=== PATIENT | male | born 1965 | race Caucasian/White ===

== ENCOUNTER 2019-03-22 11:19 | Day surgery (SDC) | payer BC ==
[2019-03-20 09:42] VITALS: BMI 29.6
[~2019-03-22 11:19] MED LIST: LACTATED RINGERS 1,000 ML IV SCH; LIDOCAINE 1% 20 ML VIAL (10MG/ML) FOR IV START INTRADERMA PRN
[2019-03-22 11:43] VITALS: TEMP 97
[2019-03-22] MEDS ORDERED: LIDOCAINE 1% INJ 10MG/ML (20 ML MDV) ONE (12:57)
[2019-03-22] MEDS ORDERED: fentaNYL (PF) 50 MCG/ML 2 ML AMP ONE (12:57)
[2019-03-22] MEDS ORDERED: MIDAZOLAM 2 MG/2 ML VIAL ONE (12:57)
[2019-03-22] MEDS ORDERED: PROPOFOL 10 MG/ML 20 ML VIAL IV ONE (12:57)
[2019-03-22] MEDS ORDERED: ePHEDrine SULFATE/0.9% NACL/PF 50 MG/5 ML SYRINGE IV ONE (12:57)
--- NOTE | 2019-03-22 13:39 | P.PCN ---
Date of Procedure: 03/22/19 Description of Procedure: BRIEF HISTORY: Patient is a 53-year-old pleasant male scheduled for an elective colonoscopy as a part of screening for malignant neoplasm of the colon. No prior colonoscopies reported. No abdominal pain, change in bowel habits or blood per rectum reported. No family history of colon cancer. PROCEDURE PERFORMED: Colonoscopy. PREOPERATIVE DIAGNOSIS: Screening for malignant neoplasm of the colon, no prior colonoscopies reported. ESTIMATED BLOOD LOSS: Minimal. IV sedation per Anesthesia. PROCEDURE: After informed consent was obtained, the patient, was brought into the endoscopy unit. IV sedation was administered by Anesthesia under continuous monitoring. Digital rectal examination was normal. Initially the Olympus CF-190 flexible video colonoscope was then inserted in the rectum, gradually advanced into the cecum without any difficulty. Careful examination was performed as the scope was gradually being withdrawn. Ileocecal valve and the appendiceal orifice were visualized and appeared normal. Prep was excellent. Mucosa of the cecum, ascending colon, transverse colon, descending colon, sigmoid colon, and rectum appeared normal. Retroflexion was performed in the rectum and no lesions were seen, mild internal hemorrhoids. The patient tolerated the procedure well. IMPRESSION: Normal-appearing colon from rectum to cecum. Mild internal hemorrhoids. RECOMMENDATIONS: Findings of this examination were discussed with the patient and his . Okay to resume diet. Okay to resume medications. Repeat colonoscopy in 10 years, or sooner if signs or symptoms develop which warrant endoscopic evaluation.
[2019-03-22 14:06] VITALS: BP 108/72; PULSE 71; RESP 18
== END 2019-03-22 14:04 | disposition home or self-care (01) ==
LOC: ORWHC2ENDO 11:19
PROVIDERS: ATTEND Internal Medicine
DX: Z12.11 Encounter for screening for malignant neoplasm of colon (principal); K64.8 Other hemorrhoids; Z88.3 Allergy status to other anti-infective agents; Z88.0 Allergy status to penicillin; I10 Essential (primary) hypertension; E78.5 Hyperlipidemia, unspecified; Z87.891 Personal history of nicotine dependence; K21.9 Gastro-esophageal reflux disease without esophagitis; Z86.73 Personal history of transient ischemic attack (TIA), and cerebral infarction without residual deficits; Z79.82 Long term (current) use of aspirin; Z79.899 Other long term (current) drug therapy
CPT/HCPCS: J2250; J2001; J3010; J2704; G0121

== ENCOUNTER 2022-03-26 13:28 | Emergency (ER) | payer OTHER, BC ==
[2022-03-26 13:32] VITALS: TEMP 98.1
[2022-03-26] MEDS ORDERED: FAMOTIDINE 20 MG/2 ML VIAL IV STA (13:54)
[2022-03-26] MEDS ORDERED: diphenhydrAMINE 50 MG/ML 1 ML VIAL IVP STA (13:54)
[2022-03-26] MEDS ORDERED: MORPHINE SULFATE 2 MG/ML SYRINGE IVP STA (13:54)
[2022-03-26] MEDS ORDERED: methylPREDNISolone SOD SUCCI 125 MG/2 ML VIAL IV STA (13:54)
[2022-03-26 14:20] LABS: Basophils % (A) 1 %; Eosinophils # (A) 0.1 k/uL (0-0.7); Eosinophils % (A) 2 %; HCT 47.2 % (39.0-53.0); HGB 16.4 gm/dL (13.0-17.5); Lymphocytes # (A) 2.5 k/uL (1.0-4.8); Lymphocytes % (A) 34 %; MCH 30.1 pg (25.0-35.0); MCHC 34.7 g/dL (31.0-37.0); MCV 86.8 fL (80.0-100.0); Mean Platelet Volume 7.6; Monocytes # (A) 0.5 k/uL (0-1.0); Monocytes % (A) 6 %; Neutrophils % (A) 55 %; Platelet Count 259 k/uL (150-450); RBC 5.44 m/uL (4.30-5.90); WBC 7.2 k/uL (3.8-10.6)
[2022-03-26 14:32] LABS: Albumin 4.9 g/dL (3.5-5.0); Calcium 9.2 mg/dL (8.4-10.2); Magnesium 1.9 mg/dL (1.6-2.3); Potassium 4.4 mmol/L (3.5-5.1); Total Bilirubin 0.8 mg/dL (0.2-1.3); Total Protein 7.7 g/dL (6.3-8.2)
--- NOTE | 2022-03-26 15:01 | CT ---
EXAMINATION TYPE: CT thor lumbar spine wo con CT DLP: 1395.2 mGycm, Automated exposure control for dose reduction was used. DATE OF EXAM: 03/26/2022 2:45 PM COMPARISON: None. CLINICAL INDICATION:Male, 56 years old with history of left flank pain, lumbar/lower thoracic spine p ain TECHNIQUE: Axial images of the thoracic spine were obtained without contrast. Coronal and sagittal re formats were performed. FINDINGS: There is mild multilevel disc degeneration changes throughout the spine. Minimal facet join t arthropathy seen throughout the lower lumbar spine. The vertebral bodies have maintained height and there is no evidence of acute or subacute fracture. No significant spinal canal stenosis seen throug hout the thoracic or lumbar spine. Mild centrilobular emphysema changes are seen within the lungs. Streaky atelectasis/scarring is seen in the lung bases. Mild atherosclerosis of the arterial vasculature. Right renal cyst partially visua lized. IMPRESSION: 1. No spinal canal or neural foraminal stenosis is identified. 2. Mild multilevel disc degeneration changes. 3. No evidence for acute/subacute/chronic fracture.
--- NOTE | 2022-03-26 15:02 | CT ---
EXAMINATION TYPE: CT abdomen pelvis w con CT DLP: 1083.7 mGycm, Automated exposure control for dose reduction was used. DATE OF EXAM: 03/26/2022 2:46 PM COMPARISON: None CLINICAL INDICATION:Male, 56 years old with history of left flank pain, lumbar/lower thoracic spine p ain; Lt flank pain, fall one month ago TECHNIQUE: Axial CT of the abdomen and pelvis. Sagittal and coronal reformats were created on a [employer] workstation. Contrast used:100 mL of Isovue 300 with IV Contrast, Oral contrast used: without Oral Contrast FINDINGS: LOWER CHEST: Unremarkable ABDOMEN LIVER: Diffusely hypoattenuating parenchyma. GALLBLADDER AND BILE DUCTS: Unremarkable. PANCREAS: Unremarkable. SPLEEN: Small splenule is present. ADRENAL GLANDS: Unremarkable. KIDNEYS AND URETERS: No evidence of hydronephrosis or renal calculus. Right renal cyst. PELVIS BLADDER: Unremarkable REPRODUCTIVE: Coarse calcifications of the prostate gland are identified. ABDOMEN & PELVIS STOMACH AND BOWEL: No evidence of bowel obstruction. PERITONEUM: No evidence of pneumoperitoneum or free fluid. VASCULATURE: No evidence of aortic aneurysm. MUSCULOSKELETAL: No acute osseous abnormalities. Mild disc degeneration changes are present throughou t the thoracolumbar spine. LYMPH NODES: No gross evidence for lymphadenopathy. SOFT TISSUE/ABDOMINAL WALL: Bilateral, right greater than left fat filled inguinal hernia. IMPRESSION: 1. No acute intra-abdominal process. 2. Hepatic steatosis. 3. Right fat filled inguinal hernia.
[2022-03-26] MEDS ORDERED: ACET/COD 300 MG/30 MG STARTER PACK 6 TAB BTL PO STA (15:58)
--- NOTE | 2022-03-26 16:00 | ED ---
General Adult HPI - General Chief complaint: Back Pain/Injury Stated complaint: [facility] Back Pain/Injury Time Seen by Provider: 03/26/22 13:35 Source: patient, RN notes reviewed, old records reviewed Mode of arrival: ambulatory Limitations: no limitations - History of Present Illness Initial comments: Patient is a 56-year-old male who presents emergency Department complaining of back pain. Was sent from outpatient health over concern for continued back pain from a fall 1 week ago. States he fell on some equipment. He has been experiencing left sided back pain since then. States it radiates somewhat around from his spine physical of his abdomen. Denies any urinary symptoms, constipation, diarrhea. Denies nausea or vomiting. His no other acute complaints at this time. Denies saddle anesthesias. Denies any difficulty with urination or bowel movements. Denies any lower extremity cancer numbness. Denies any saddle anesthesias. Denies any chest pain, shortness of breath. Has no other acute complaints at this time. Since the emergency department for further evaluation from occupational health. - Related Data Home Medications Medication Instructions Recorded Confirmed Aspirin [Adult Low Dose Aspirin EC] 81 mg PO DAILY 03/20/19 03/22/19 Atorvastatin [Lipitor] 10 mg PO DAILY 03/20/19 03/22/19 Cholecalciferol (Vitamin D3) 2,000 unit PO DAILY 03/20/19 03/22/19 [Vitamin D3] Lucentis(Dose Unknown) 1 injection RIGHT EYE QMONTH 03/20/19 03/22/19 Omeprazole 20 mg PO DAILY 03/20/19 03/22/19 lisinopriL [Prinivil] 10 mg PO DAILY 03/20/19 03/22/19 Previous Rx's Medication Instructions Recorded Lidocaine 5% Patch [Lidoderm 5% 1 patch TOPICAL DAILY PRN 7 Days 03/26/22 Patch] #7 patch methocarbamoL [Robaxin-750] 750 mg PO TID PRN 7 Days #21 tab 03/26/22 Allergies Allergy/AdvReac Type Severity Reaction Status Date / Time iodine Allergy Severe Unknown Verified 03/26/22 13:32 Penicillins Allergy Unknown Verified 03/26/22 13:32 Childhood Review of Systems ROS Statement: Those systems with pertinent positive or pertinent negative responses have been documented in the HPI. Review of Systems: CONST: Denies fever EYES: Denies blurry vision ENT: Denies nasal congestion C/V: Denies Chest pain RESP: Denies shortness of breath GI: Denies abdominal pain : Denies dysuria SKIN: Denies rash. MSK: Endorse's back pain NEURO: Denies headache ROS Other: All systems not noted in ROS Statement are negative. Past Medical History Past Medical History: GERD/Reflux, Hyperlipidemia, Hypertension History of Any Multi-Drug Resistant Organisms: None Reported Past Surgical History: Hernia Repair Past Anesthesia/Blood Transfusion Reactions: No Reported Reaction Past Psychological History: No Psychological Hx Reported Smoking Status: Former smoker Past Alcohol Use History: Rare Past Drug Use History: None Reported - Past Family History Mother Family Medical History: Cancer General Exam - General Exam Comments Initial Comments: General: Appears in mild distress secondary to back pain. HEAD: Normal with no signs of head trauma. EYES: PERRLA, EOMI, conjunctiva normal, no discharge. ENT: Hearing grossly intact, normal oropharynx. RESPIRATORY: Clear breath sounds bilaterally. No wheezes, rales, or rhonchi. C/V: Regular rate and rhythm. S1 and S2 auscultated, no edema, peripheral pulses 2+ and intact throughout ABD: Abdomen is soft, nondistended. Nontender to palpation over the anterior abdomen. Does have some left-sided flank tenderness that radiates straight to the spine and pelvic distribution. Appears to be radiculopathy. No guarding. No CVA tenderness to percussion. No rebound tenderness. No peritoneal signs. EXT: Normal range of motion, no obvious deformity. No midline cervical spine tenderness to palpation. Does have some mild midline lower thoracic, upper lumbar spine tenderness to palpation. Pelvis is stable. SKIN: No rashes or lesions observed on exposed skin. NEURO: Alert and oriented 4. No focal sensory strength deficits. Able to ambulate without difficulty. Limitations: no limitations Course Vital Signs 03/26/22 03/26/22 13:29 16:23 Temperature 98.1 F Pulse Rate 73 71 Respiratory 20 18 Rate Blood Pressure 123/83 124/86 O2 Sat by Pulse 98 96 Oximetry Medical Decision Making - Medical Decision Making Based on patient's presentation and physical exam, I do believe he is experiencing musculoskeletal cause for his back and side pain. Cannot rule out intra-abdominal cause. We'll symptomatically treat patient for his pain, as well as obtain basic laboratory studies for the Abdomen and CT Abd and pelvis with lumbar spine and thoracic spine. He was in agreement this plan. Laboratory studies were within normal limits. Abdomen and pelvis CT showed no acute process. There is hepatic steatosis as well as a bright fat filled inguinal hernia. CT spine reveals mild multilevel disc degeneration. No spinal canal or neural foraminal stenosis. No evidence of acute or chronic fracture. I discussed the findings with the patient as well as his are in the room. He is uncertain what is causing the current symptoms. Could be still experiencing bruising from the fall. Recommended follow-up with his PCP and we'll provide him with analgesic medications for home. He was in agreement this plan. He has no red flag symptoms for cauda equina syndrome. Vital signs within normal limits. Patient was in agreement this plan for discharge with follow-up. I will provide the patient with a prescription for lidocaine patch, Robaxin. I instructed the patient to follow up with their PCP in the next 1-3 days . I explained that the patient should return to the emergency department if they experience any worsening symptoms. Strict return precautions were discussed with the patient. The patient expressed understanding of these instructions. I answered all questions that the patient had. The patient was discharged home in good condition with their prescriptions and follow up information. - Lab Data Result diagrams: 03/26/22 14:07 03/26/22 14:07 Lab Results 03/26/22 03/26/22 Range/Units 14:07 14:07 WBC 7.2 (3.8-10.6) k/uL RBC 5.44 (4.30-5.90) m/uL Hgb 16.4 (13.0-17.5) gm/dL Hct 47.2 (39.0-53.0) % MCV 86.8 (80.0-100.0) fL MCH 30.1 (25.0-35.0) pg MCHC 34.7 (31.0-37.0) g/dL RDW 12.0 (11.5-15.5) % Plt Count 259 (150-450) k/uL MPV 7.6 Neutrophils % 55 % Lymphocytes % 34 % Monocytes % 6 % Eosinophils % 2 % Basophils % 1 % Neutrophils # 4.0 (1.3-7.7) k/uL Lymphocytes # 2.5 (1.0-4.8) k/uL Monocytes # 0.5 (0-1.0) k/uL Eosinophils # 0.1 (0-0.7) k/uL Basophils # 0.0 (0-0.2) k/uL Sodium 137 (137-145) mmol/L Potassium 4.4 (3.5-5.1) mmol/L Chloride 107 (98-107) mmol/L Carbon Dioxide 20 L (22-30) mmol/L Anion Gap 10 mmol/L BUN 17 (9-20) mg/dL Creatinine 1.12 (0.66-1.25) mg/dL Est GFR (CKD-EPI)AfAm 85 (>60 ml/min/1.73 sqM) Est GFR (CKD-EPI)NonAf 74 (>60 ml/min/1.73 sqM) Glucose 98 (74-99) mg/dL Calcium 9.2 (8.4-10.2) mg/dL Magnesium 1.9 (1.6-2.3) mg/dL Total Bilirubin 0.8 (0.2-1.3) mg/dL AST 32 (17-59) U/L ALT 32 (4-49) U/L Alkaline Phosphatase 96 (38-126) U/L Total Protein 7.7 (6.3-8.2) g/dL Albumin 4.9 (3.5-5.0) g/dL Lipase 109 (23-300) U/L Disposition Clinical Impression: Back pain due to injury Disposition: HOME SELF-CARE Condition: Fair Instructions (If sedation given, give patient instructions): Acute Low Back Pain (ED) Prescriptions: Lidocaine 5% Patch [Lidoderm 5% Patch] 1 patch TOPICAL DAILY PRN 7 Days #7 patch PRN Reason: Pain methocarbamoL [Robaxin-750] 750 mg PO TID PRN 7 Days #21 tab PRN Reason: Pain Is patient prescribed a controlled substance at d/c from ED?: No Referrals: Rachele Ford MD [Primary Care Provider] - 1-2 days Time of Disposition: 15:45
[2022-03-26 16:23] VITALS: BP 124/86; PULSE 71; RESP 18
== END 2022-03-26 16:23 | disposition home or self-care (01) ==
LOC: EC 13:28
DX: S39.92XA Unspecified injury of lower back, initial encounter (principal); Z87.891 Personal history of nicotine dependence; Z88.0 Allergy status to penicillin; Z91.041 Radiographic dye allergy status; W19.XXXA Unspecified fall, initial encounter
CPT/HCPCS: 36415; 80053; 83690; 83735; 85025; 72128; 72131; 74177; 99284; 96374; 96375; J1200; J2930; Q9967

== ENCOUNTER → 2024-04-02 | Outpatient (CLI) | payer BC ==
--- NOTE | 2024-04-28 19:07 | US ---
Site ID [facility] Patient Malik Parson ID [id number] 1965 Age/Gender: 58Y, M Order # N/A Procedure US Prostate Transrectal Date 04/02/2024 4:04:00 PM EXAMINATION TYPE: US prostate transrectal DATE OF EXAM: 04/15/2024 COMPARISON: Ultrasound prostate 06/14/2023, CT abdomen and pelvis 03/26/2022 CLINICAL INDICATION: Male, 58 year old with history of elevated PSA. This examination was performed using the transrectal probe. EXAM MEASUREMENTS: Gland Size: 4.66 x 3.09 x 4.55 cm Volume: 34.30 mL Predicted PSA: 4.1 Actual PSA (if available): Not available due to computer is down. The seminal vesicles appear normal size and grossly unremarkable. Mildly enlarged prostate gland with slightly heterogenous appearance. No worrisome peripheral prosthetic hypoechoic nodule seen. Central zone calcifications redemonstrated. IMPRESSION: 1. No worrisome peripheral prosthetic hypoechoic nodule seen. 2. Mild prostatomegaly.
== END | disposition home or self-care (01) ==
LOC: RADUSWWP 12:00
PROVIDERS: ATTEND Internal Medicine
DX: R97.20 Elevated prostate specific antigen [PSA]
CPT/HCPCS: 76872

== ENCOUNTER → 2024-12-03 | Outpatient (CLI) | payer BC ==
--- NOTE | 2024-12-03 07:11 | MR ---
EXAMINATION TYPE: MR Prostate wo/w con DATE OF EXAM: 12/03/2024 COMPARISON: Ultrasound prostate April 02, 2024 INDICATION: Elevated PSA. PSA: 14.5 ng/ml on November 02 2024 Recent Biopsy and Date: None Pathology Report (If Applicable): n/a TECHNIQUE: Examination was performed using a 3T MRI without an endorectal coil. Multiparametric imaging was perf ormed with T2 mutliplanar sequences, axial diffusion weighted imaging and dynamic contrast enhanced i maging, utilizing 9 mL intravenous Gadobutrol gadolinium contrast. FINDINGS: PROSTATE VOLUME: 4.3 cm SI x 3.7 cm AP x 4.7 cm LR Vol= 39.2 cc PSA DENSITY: 0.37 ng/ml/cc Slightly enlarged prostate consistent with BPH is present. Site 1: Assessment Category:4 1.4 cm area of heterogeneous signal intensity with obscured margins left mid zone extending towards t he apex medially corresponding to area of marked hypointensity on ADC imaging and hyperintensity on d iffusion-weighted imaging in the transitional zone anterior aspect with focal enhancement. ADC series 802 images 60 and 68 Seminal vesicles are unremarkable. No destructive osseous lesions are seen. Urinary bladder shows mil d distention. IMPRESSION: Slightly enlarged prostate. Suspicious lesion in the left transitional zone is present. Advised imaging guided targeted biopsy to further evaluate. Highest Assessment Category: 4 MRI Stage: T0 N0 M0 based on review of pelvic images. False negative rates for MRI range from 5-20% depending on risk profile. Assessment Categories: 1 ? Very low (clinically significant cancer is highly unlikely to be present) 2 ? Low (clinically significant cancer is unlikely to be present) 3 ? Intermediate (the presence of clinically significant cancer is equivocal) 4 ? High (clinically significant cancer is likely to be present) 5 ? Very high (clinically significant cancer is highly likely to be present) [facility], , 12/03/2024 7:08 AM
== END | disposition home or self-care (01) ==
LOC: RADMRIMAIN 05:44
PROVIDERS: ATTEND Urology
DX: N40.0 Benign prostatic hyperplasia without lower urinary tract symptoms (principal); R97.20 Elevated prostate specific antigen [PSA]
CPT/HCPCS: 72197; A9585

== ENCOUNTER → 2025-02-07 | Outpatient (CLI) | payer BC ==
--- NOTE | 2025-02-10 23:09 | PE ---
EXAMINATION TYPE: PET CT fusion skull to thigh DATE OF EXAM: 02/07/2025 COMPARISON: 03/26/2022 Prior PET/CT: None at this location CLINICAL INDICATION: Male, 59 years old with history of C61 prostate ca, TECHNIQUE: Following the intravenous administration of 6.3 mCi of Gallium-68 labeled PSMA, whole bod y images are performed from the skull base to the midthigh. Images are reviewed on the computer in t he coronal, axial, and sagittal planes. Reconstructed rotating images are created on independent wor kstation and reviewed on the computer. A localization and attenuation correction CT is performed in conjunction with the PET scan. DLP: 890.4 mGycm SCAN: Initial FINDINGS: NECK: There is normal radiotracer distribution through salivary glands. No abnormal uptake THORAX: No abnormal uptake ABDOMEN:There is normal radiotracer excretion through the renal collecting system. Normal uptake wit hin the liver and spleen. No abnormal uptake PELVIS: In the left mid prostate there is some faint uptake present within SUV of 10.13 OSSEOUS STRUCTURES: No abnormal uptake LOCALIZATION CT: No suspicious changes COMPARISON: None IMPRESSION: 1. Mild focal uptake within the left portion of the prostate consistent with patient's known primary. 2. No suspicious changes to suggest metastatic disease. [facility], , 02/10/2025 11:07 PM
== END | disposition home or self-care (01) ==
LOC: RADPETMAIN 07:59
PROVIDERS: ATTEND Urology
DX: C61 Malignant neoplasm of prostate (principal)
CPT/HCPCS: 78815; A9596

== ENCOUNTER → 2025-02-19 | Outpatient (CLI) | payer BC ==
[2025-02-19 15:36] LABS: Anion Gap 10.30 mmol/L (4.00-12.00); BUN/Creat Ratio 12.82 Ratio (12.00-20.00); Blood Urea Nitrogen 14.1 mg/dL (9.0-27.0); Calcium 9.4 mg/dL (8.7-10.3); Carbon Dioxide 22.7 mmol/L (21.6-31.8); Chloride 104 mmol/L (96-109); Glucose 100 mg/dL (70-110); Potassium 4.5 mmol/L (3.5-5.5); Sodium 137 mmol/L (135-145)
[2025-02-19 16:02] LABS: HCT 50.5 % (39.6-50.0); HGB 17.4 g/dL (13.0-17.0); MCH 29.1 pg (27.0-32.0); MCHC 34.5 g/dL (32.0-37.0); MCV 84.4 FL (80.0-97.0); NRBC Per 100 WBC 0 X 10*3/uL (0.00-0.01); Platelet Count 235 X 10*3/uL (140-440); RBC 5.98 X 10*6/uL (4.40-5.60); RDW 12.1 % (11.5-14.5); WBC 7.02 X 10*3/uL (4.50-10.00)
== END | disposition home or self-care (01) ==
LOC: LABPAT 08:43
PROVIDERS: ATTEND Urology
DX: Z01.812 Encounter for preprocedural laboratory examination (principal); C61 Malignant neoplasm of prostate
CPT/HCPCS: 80048; 85027; 86850; 86900; 86901

== ENCOUNTER 2025-02-28 08:46 | Day surgery (SDC) | payer BC ==
--- NOTE | 2025-02-25 12:36 | P.HPIHPCON ---
History of Present Illness H&P Date: 02/25/25 Chief Complaint: Prostate cancer This is a 59-year-old male with history of [place] 7 prostate cancer, patient had a high-volume disease on biopsy. Underwent a PSMA PET scan that showed no evidence of metastatic disease. Option of robotic radical prostatectomy versus radiation therapy was discussed with him in detail. Risk and benefit of each approach were discussed. He agreed to proceed with a robotic radical prostatectomy. He is aware of the risk which include but not limited to bleeding, infection, erectile dysfunction, urinary incontinence, injury to nearby organs. Risk of cancer recurrence and the need for additional treatments was discussed. He understood all the risk and agreed to proceed Consent for Procedure: I have explained the operation/procedure to the patient, including the risks, benefits, side effects, alternative therapies (including not receiving the proposed treatment or service), the likelihood of the patient achieving his/her goals, and potential recuperation problems for the procedure/sedation/analgesia, as well as any blood products, if indicated. I also explained to the patient the risks, benefits and side effects of the alternatives, as well as the risks related to not receiving the proposed procedure, care, treatment, or services. Past Medical History Past Medical History: GERD/Reflux, Hyperlipidemia, Hypertension Additional Past Medical History / Comment(s): ELEVATED PSA History of Any Multi-Drug Resistant Organisms: None Reported Past Surgical History: Hernia Repair Additional Past Surgical History / Comment(s): BILAT INGUINAL HERNIA REPAIR. COLONOSCOPY Past Anesthesia/Blood Transfusion Reactions: No Reported Reaction Smoking Status: Former smoker - Past Family History Mother Family Medical History: Cancer Medications and Allergies Home Medications Medication Instructions Recorded Confirmed Type Aspirin [Adult Low Dose Aspirin EC] 81 mg PO DAILY 03/20/19 01/08/25 History Cholecalciferol (Vitamin D3) 2,000 unit PO DAILY 03/20/19 01/08/25 History [Vitamin D3] Omeprazole 20 mg PO DAILY 03/20/19 01/08/25 History lisinopriL [Prinivil] 10 mg PO DAILY 03/20/19 01/08/25 History Atorvastatin [Lipitor] 20 mg PO DAILY 01/03/25 01/08/25 History Multivit,Calc,Min/FA/K1/Lycop 1 each PO DAILY 01/03/25 01/08/25 History [One-A-Day Men's Complete Tab] Vitamin E (Dl,Tocopheryl Acet) 400 unit PO DAILY 01/03/25 01/08/25 History [Vitamin E (400 Iu = 180 mg)] Allergies Allergy/AdvReac Type Severity Reaction Status Date / Time iodine Allergy Severe Unknown Verified 01/08/25 13:19 Penicillins Allergy Unknown Verified 01/08/25 13:19 Childhood Surgical - Exam - General no distress, no pain - Eyes normal ocular movement, no pale - ENT normal nares, normal mucosa - Respiratory normal expansion, normal respiratory effort - Abdomen Abdomen: soft, non tender - Psychiatric oriented to time, oriented to person, oriented to place Assessment and Plan Assessment: OR for robotic radical prostatectomy with bilateral pelvic lymph node dissection
[~2025-02-28 08:46] MED LIST changes: +HYDROmorphone 0.5 MG/0.5 ML SYRINGE IVP PRN; -LACTATED RINGERS 1,000 ML IV SCH; +LIDOCAINE 1% (10MG/ML) FOR IV START INTRADERMA PRN; -LIDOCAINE 1% 20 ML VIAL (10MG/ML) FOR IV START INTRADERMA PRN
[2025-02-28] MEDS: IV FLUID CONTINUATION 1,000 ML IV ONE ×2 (09:28→09:41)
[2025-02-28] MEDS: LACTATED RINGERS 1,000 ML IV SCH (09:29)
[2025-02-28] MEDS: ONDANSETRON 4 MG/2 ML VIAL IVP ONE (09:39)
[2025-02-28] MEDS: DEXAMETHASONE SOD PHOSPHATE 4 MG/ML 1 ML VIAL IV ONE (09:40)
[2025-02-28] MEDS: MIDAZOLAM 2 MG/2 ML VIAL IV PRN (10:40)
[2025-02-28] MEDS: fentaNYL (PF) 50 MCG/ML 2 ML AMP IVP PRN (10:45)
--- NOTE | 2025-02-28 10:52 | P.ANPRN ---
Procedure Note - Anesthesia - Nerve Block Performed Bilateral Erector Spinae Single Time Out Performed: Yes Date of Procedure: 02/28/25 Procedure Start Time: 10:39 Procedure Stop Time: 10:44 Location of Patient: PreOp Indication: Acute Post-Operative Pain, Analgesia, Requested by Surgeon Sedation Type: Sedate with meaningful contact maintained Preparation: Sterile Prep Position: Prone Catheter: None Needle Types: Pajunk Needle Gauge: 21 Ultrasound used to visualize needle placement: Yes Ultrasound used to observe medication spread: Yes Injectate: 0.5% Ropivacaine (see comment for volume) ([id number], Needle level T12---- Bilateral) Blood Aspirated: No Pain Paresthesia on Injection Noted: No Resistance on Injection: Normal Image Stored and Saved: Yes Events: Uneventful and Well Tolerated
[2025-02-28] MEDS: HEPARIN SODIUM,PORCINE 5,000 UNIT/ML 1 ML VIAL SQ PRN (10:54)
[2025-02-28] MEDS ORDERED: DEXAMETHASONE SOD PHOSPHATE 4 MG/ML 1 ML VIAL ONE (11:25)
[2025-02-28] MEDS ORDERED: ROCURONIUM 10 MG/ML (5 ML VIAL) IV ONE (11:25)
[2025-02-28] MEDS ORDERED: MIDAZOLAM 2 MG/2 ML VIAL ONE (11:25)
[2025-02-28] MEDS ORDERED: LIDOCAINE 1% INJ 10MG/ML (20 ML MDV) ONE (11:25)
[2025-02-28] MEDS ORDERED: PHENYLEPHRINE-0.9% NACL SYG 1,000 MCG/10 ML SYRINGE ONE (11:25)
[2025-02-28] MEDS ORDERED: PHENYLEPHRINE 10 MG/ML VIAL ONE (11:25)
[2025-02-28] MEDS ORDERED: HYDROmorphone (PF) 1 MG/ML ONE (11:25)
[2025-02-28] MEDS ORDERED: fentaNYL (PF) 50 MCG/ML 2 ML AMP ONE (11:25)
[2025-02-28] MEDS ORDERED: SUCCINYLCHOLINE CHLORIDE 200 MG/10 ML VIAL IV ONE (11:25)
[2025-02-28] MEDS ORDERED: ROPIVACAINE 5 MG/ML 30 ML VIAL ONE (11:25)
[2025-02-28] MEDS ORDERED: PROPOFOL 10 MG/ML 20 ML VIAL IV ONE (11:25)
[2025-02-28] MEDS ORDERED: HYDROmorphone 1 MG/ML 1 ML SYRINGE IVP PRN (11:39)
[2025-02-28] MEDS: BUPIVACAINE (PF) 0.25% 30 ML VIAL SQ ONE (12:01)
[2025-02-28] MEDS: LACTATED RINGERS 1,000 ML IV ONE (13:18)
--- NOTE | 2025-02-28 15:03 | P.OP ---
Date of Procedure: 02/28/25 Preoperative Diagnosis: Prostate cancer Postoperative Diagnosis: Same Procedure(s) Performed: Robotic assisted laparoscopic radical prostatectomy with bilateral pelvic lymph node dissection Implants: None Anesthesia: RUPALIA Surgeon: Agustin Reis Estimated Blood Loss (ml): 50 Pathology: other (Prostate, bilateral seminal vesicle, bilateral pelvic nodes) Condition: stable Disposition: PACU Indications for Procedure: This is a 59-year-old male with history of Solitario 7 prostate cancer, patient had a high-volume disease on biopsy. Underwent a PSMA PET scan that showed no evidence of metastatic disease. Option of robotic radical prostatectomy versus radiation therapy was discussed with him in detail. Risk and benefit of each approach were discussed. He agreed to proceed with a robotic radical prostatectomy. He is aware of the risk which include but not limited to bleeding, infection, erectile dysfunction, urinary incontinence, injury to nearby organs. Risk of cancer recurrence and the need for additional treatments was discussed. He understood all the risk and agreed to proceed Description of Procedure: After preoperative antibiotics were started, the patient was taken to the operating room. Anesthesia was induced and the patient was placed in a supine position, with adequate padding of the pressure points, shoulders, back, legs and arms. He was then prepped and draped in the standard fashion. A critical pause was performed using two patient identifiers. A 16F hernandez catheter was placed to gravity drainage. A pneumo-peritoneum was created with placement of a Veress needle to 20 mm Hg without complication, and a 8 Fr trocar was placed above the umbillicus. Under direct vision a 8mm robotic ports was placed lateral to each rectus slightly below the camera port. The left iliac fossa 8mm port was placed. The right surveyor instrument assistant right iliac fossa 12mm port and right paramedian 5mm portwere placed. After the patient was placed in the trendelenberg position, the robot was then docked to the 8mm robotic ports and then each robotic arm and tower was checked in relation to the patient's legs and hands to avoid inadvertent compression. The peritoneal cavity was inspected. Adhesions were taken down robotically along the left lower quadrant An inverted U-shaped incision began laterally to the left medial umbilical ligament and extended high across the midline to the right umbilical ligament. The limbs of the "U" extended to the level of the vasa on both sides. We next developed the preperitoneal space and the space of Retzius. Patient had multiple pieces of mesh including one was right at midline at the level of the pubic bone, this caused significant adherence of the bladder to the abdominal wall. No clear surgical plane could be seen secondary to the inflammatory response from the mesh, but I was able to dissect the bladder down away from the abdominal wall using cautery, there was no injury to the bladder. Cautery was used to dissected the bladder away from the prostate. After the anterior bladder neck was incised and the bladder entered the the posterior bladder neck was exposed and the ureteral orifces identified. The posterior bladder neck was then incised and dissected away from the prostate. The vas and the seminal vesicles were now exposed and dissected to their insertions into the prostate and were not spared. The posterior layer of the Denonvillier's fascia w as incised to enter kumar the plane between prostate and perirectal fat. Each lateral pedicle was controlled with vessel sealer. Complete nerve preservation was performed on the right, no nerve preservation was performed on the left. the puboprostatic ligament was incised where it inserted into the apex of the prostate and a plane between urethra and dorsal venous complex developed to expose the anterior urethral surface. The anterior wall of the urethra was transected with the cut setting a few millimeters distal to the apex of the prostate. The dorsal vein was ligated using 3-0 V lock bilateral obturator and external iliac lymph node packets were carefully dissected after careful visualization of the hypogastric artery and obturator nerve. There was careful attention paid to hemostasis with judicious use of cautery. The urethrovesical anastomosis was performed . the posterior denovillers was reapproximated using 3-0 V lock. A 6 and 6 inch 3-0 V-Lock suture was used to anastomose the urethra and bladder, starting at the 6:00 posterior position. Mucosa was secured in every stitch, to ensure a mucosa to mucosa anastomosis. The stitch was regularly cinched and the anastomosis tightened. Care was taken to not violate the ureteral orifices. The Hernandez catheter was advanced, the bladder filled, and the anastomosis was tested, as described above. Anastomsis was watertight at 150 mL The periumbilical fascia was closed with 1-0-PDS suture in figure of eight fashion. All ports were closed with a subcuticular 4-0 monocryl and Dermabond. Sponge, instrument, and needle counts were correct at the end of the case x2. All specimens including prostate and lymph nodes were sent to pathology for diagnosis and will be available in a week. The patient tolerated the surgery well and without complication. He awoke without difficulty and was taken to the recovery room in stable condition
[2025-02-28] MEDS: KETOROLAC 15 MG/ML 1 ML VIAL IVP SCH (18:13)
[2025-02-28] MEDS: BENZOCAINE/MENTHOL LOZENG 1 EACH LOZENGE MUCOUS MEM PRN (18:14)
[2025-02-28] MEDS: D5-0.45% NACL WITH KCL 20MEQ/L 1,000 ML IV SCH (18:49)
[2025-02-28] MEDS: HEPARIN SODIUM,PORCINE 5,000 UNIT/ML 1 ML VIAL SQ SCH (20:50)
[2025-03-01] MEDS: PANTOPRAZOLE 40 MG TABLET PO SCH (06:20)
[2025-03-01 08:18] VITALS: BP 141/75; PULSE 80; RESP 16; TEMP 98.1
[2025-03-01] MEDS: ATORVASTATIN 20 MG TAB PO SCH (10:04)
--- NOTE | 2025-03-01 10:42 | P.DS ---
Providers Expected date of discharge: 03/01/25 Attending physician: Agustin Reis MD Primary care physician: Rachele Ford [facility] Course: On the day of admission, the patient underwent an uncomplicated RALP. The perioperative course was unremarkable. He remained afebrile with stable vital signs. On the first postoperative morning, he reported mild urethral burning as a result of the catheter. On examination, the abdomen was soft and non- distended. Incisions were clean, dry, and intact. Lacy catheter was draining blood-tinged urine. He tolerated breakfast, without nausea or vomiting. He had not yet ambulated. Procedures: Robotic assisted laparoscopic prostatectomy (RALP) with bilateral pelvic lymphadenectomy on February 28, 2025. Patient Condition at Discharge: Good Plan - Discharge Summary Discharge Rx Participant: Yes New Discharge Prescriptions: New Ciprofloxacin HCl [Cipro] 500 mg PO Q12HR 3 Days #6 tab Ketorolac [Toradol] 10 mg PO Q6HR PRN #15 tab PRN Reason: Pain No Action Omeprazole 20 mg PO DAILY Cholecalciferol (Vitamin D3) [Vitamin D3] 2,000 unit PO DAILY lisinopriL [Prinivil] 10 mg PO DAILY Aspirin [Adult Low Dose Aspirin EC] 81 mg PO DAILY Vitamin E (Dl,Tocopheryl Acet) [Vitamin E (400 Iu = 180 mg)] 400 unit PO DAILY Atorvastatin [Lipitor] 20 mg PO DAILY Multivit,Calc,Min/FA/K1/Lycop [One-A-Day Men's Complete Tab] 1 each PO DAILY Discharge Medication List Aspirin [Adult Low Dose Aspirin EC] 81 mg PO DAILY 03/20/19 [History] Cholecalciferol (Vitamin D3) [Vitamin D3] 2,000 unit PO DAILY 03/20/19 [History] Omeprazole 20 mg PO DAILY 03/20/19 [History] lisinopriL [Prinivil] 10 mg PO DAILY 03/20/19 [History] Atorvastatin [Lipitor] 20 mg PO DAILY 01/03/25 [History] Multivit,Calc,Min/FA/K1/Lycop [One-A-Day Men's Complete Tab] 1 each PO DAILY 01/03/25 [History] Vitamin E (Dl,Tocopheryl Acet) [Vitamin E (400 Iu = 180 mg)] 400 unit PO DAILY 01/03/25 [History] Ciprofloxacin HCl [Cipro] 500 mg PO Q12HR 3 Days #6 tab 02/28/25 [Rx] Ketorolac [Toradol] 10 mg PO Q6HR PRN #15 tab 02/28/25 [Rx] Activity/Diet/Wound Care/Special Instructions: No heavy lifting or straining for 4 weeks Start your antibiotics one day prior to your follow up appointment You may shower, no baths Discharge Disposition: HOME SELF-CARE
[2025-03-01] MEDS: HYDROcodone/APAP 5-325MG 1 EACH TAB PO PRN (11:11)
== END 2025-03-01 11:24 | disposition home or self-care (01) ==
LOC: OR 08:46 → 4SSUR 15:04 → OR 03-01 11:24
PROVIDERS: ATTEND Urology
DX: C61 Malignant neoplasm of prostate (principal); N41.1 Chronic prostatitis; E78.5 Hyperlipidemia, unspecified; I10 Essential (primary) hypertension; Z98.890 Other specified postprocedural states; Z87.891 Personal history of nicotine dependence; Z88.8 Allergy status to other drugs, medicaments and biological substances; Z88.0 Allergy status to penicillin; Z79.02 Long term (current) use of antithrombotics/antiplatelets; Z79.82 Long term (current) use of aspirin; Z79.899 Other long term (current) drug therapy
CPT/HCPCS: 38571; 55866; S2900; 64468; 88307; 88309